=== PATIENT | male | born 1980 | race Caucasian/White ===

== ENCOUNTER 2017-07-16 16:36 | Inpatient (IN) | payer MEDICAID ==
[~2017-07-16] VITALS: Ht 175.3 cm; Wt 53.8 kg
[2017-07-16 17:06] LABS: BASOPHIL % 0.3 % (0-2); PLATELET COUNT 297 x10^3mcL (130-400); RED CELL DISTRIBUTION WIDTH 13.4 % (11.5-14.5)
[2017-07-16 17:12] LABS: CARBON DIOXIDE 26.8 mmol/L (21-32); CHLORIDE SERUM 104 mmol/L (98-107); CREATININE SERUM 1.4 mg/dL (0.7-1.3); GFR1 > 60 mL/min; GLUCOSE SERUM 135 mg/dL (74-106); POTASSIUM SERUM 3.4 mmol/L (3.5-5.1); SODIUM SERUM 141 mmol/L (136-145)
[2017-07-16 17:17] LABS: ALKALINE PHOSPHATASE 88 U/L (46-116); ALT/SGPT 26 U/L (16-63); AST/SGOT 24 U/L (15-37); BILIRUBIN TOTAL 0.6 mg/dL (0.20-1.00); TOTAL PROTEIN, SERUM 7.3 g/dL (6.4-8.2)
[2017-07-16 19:42] LABS: T3 TOTAL 1.19 ng/mL
[2017-07-16 19:59] LABS: FREE T4 1.13 ng/dL (0.76-1.46); FREE THYROXINE INDEX 3.1 ug/dL (1.4-4.5); T4(THYROXINE) 8.1 ug/dL (4.7-13.3)
[2017-07-16 20:14] LABS: CHOLESTEROL/HDL RATIO 2.7; MAGNESIUM 1.9 mg/dL (1.8-2.4); PHOSPHOROUS 3.7 mg/dL (2.5-4.9)
[2017-07-16 20:23] LABS: microscopic required? NO
[2017-07-16 20:41] LABS: urine erythrocyte NEGATIVE (NEGATIVE)
[2017-07-16 20:50] VITALS: BP 110/59
[2017-07-16 20:50] LABS: AMPHETAMINE QUAL UR NONE DETECTED (NEG <=1000)
[2017-07-17 05:32] VITALS: BP 106/50
[2017-07-17 06:06] LABS: CALCIUM 8.4 mg/dL (8.5-10.1); CARBON DIOXIDE 27.6 mmol/L (21-32); CHLORIDE SERUM 105 mmol/L (98-107); CREATININE SERUM 0.8 mg/dL (0.7-1.3); GFR1 > 60 mL/min; GLUCOSE SERUM 148 mg/dL (74-106); SODIUM SERUM 141 mmol/L (136-145)
[2017-07-17 08:40] VITALS: BP 109/64
[2017-07-17] MEDS ORDERED: EPIPEN JR 20.5 MG/ML IM (12:01)
[2017-07-17 13:07] VITALS: BP 102/48
[2017-07-17 13:12] VITALS: BP 102/48
== END 2017-07-17 15:05 | disposition home or self-care (01) | DRG 816 ==
LOC: ED 16:36 → DU 19:08
PROVIDERS: Emergency Medicine; ADMIT Family Medicine
DX: T63.441A Toxic effect of venom of bees, accidental (unintentional), initial encounter (principal); T78.2XXA Anaphylactic shock, unspecified, initial encounter; R22.0 Localized swelling, mass and lump, head; H53.8 Other visual disturbances; L29.9 Pruritus, unspecified; E87.6 Hypokalemia; E78.5 Hyperlipidemia, unspecified; R63.6 Underweight; Z68.1 Body mass index [BMI] 19.9 or less, adult; Y92.89 Other specified places as the place of occurrence of the external cause
CPT/HCPCS: 83880; 84439; 90658; J0171; J1200; J2920; J2930; J3490; J7030; Q0092